=== PATIENT | male | born 1995 | race Caucasian/White ===

== ENCOUNTER 2016-05-21 16:21 | Emergency (ER) | payer MEDICAID ==
[2016-05-21 16:34] VITALS: BP 133/82
--- NOTE | 2016-05-21 17:13 | UC ---
UC General HPI - HPI Summary HPI Summary: here today wishing to get meds refilled. Stated he came here from [place] and ran out of meds 2 weeks ago. States he went to a doctors office in [place] and was turned away because he has medicaid. Pt gave nurses the name of his last pharmacy in [place] - History of Current Complaint Chief Complaint: UCMedRefill Stated Complaint: MED REFILL Time Seen by Provider: 05/21/16 17:01 Hx Obtained From: Patient Timing: Constant Current Severity: None Associated Signs & Symptoms: Positive: Abdominal Pain - has been off hydrocodone and prilosec for 2 weeks - Allergy/Home Medications Allergies/Adverse Reactions: Allergies Allergy/AdvReac Type Severity Reaction Status Date / Time Methylphenidate Allergy Agitation Verified 05/21/16 16:34 [From Ritalin] Home Medications: Home Medications FLUoxetine* [PROzac*] 30 mg PO DAILY 05/21/16 [History Confirmed 05/21/16] Gabapentin [Neurontin 800 mg tab] 800 mg PO QID 05/21/16 [History Confirmed 09/01] Hydrocodone-Acetaminophen [Hydrocodone Bitartrate/AC] 1 tab PO QID PRN 05/21/16 [History Confirmed 05/21/16] Mirtazapine TAB* [Remeron TAB*] 30 mg PO BEDTIME 05/21/16 [History Confirmed 09/01] Omeprazole CAP* [Prilosec CAP* 20 MG] 40 mg PO BID 05/21/16 [History Confirmed 05/21/16] QUEtiapine TAB* [SEROquel TAB*] 400 mg PO BEDTIME 05/21/16 [History Confirmed ] Sertraline* [Zoloft*] 200 mg PO DAILY 05/21/16 [History Confirmed 05/21/16] PMH/Surg Hx/FS Hx/Imm Hx Previously Healthy: No GI/ History Of: Reports: Gastroesophageal Reflux - h.pylori per patients report Psychological History Of: Reports: Depression - per patients report, Bipolar Disorder - per patients report, Schizophrenia - per patients report - Surgical History Surgical History: Yes Surgery Procedure, Year, and Place: Right ankle surgery. Hypospadias. T&A - Family History Family History: denies cardio vascular issues in family lineage - Social History Occupation: Unemployed Lives: With Family Alcohol Use: None Substance Use Type: None Smoking Status (MU): Heavy Every Day Tobacco Smoker Have You Smoked in the Last Year: Yes Cessation Counseling: Counseled 3+Min - 10 Min Review of Systems Constitutional: Negative Skin: Negative Eyes: Negative ENT: Negative Respiratory: Negative Cardiovascular: Negative Gastrointestinal: Negative Genitourinary: Negative Motor: Negative Neurovascular: Negative Musculoskeletal: Negative Neurological: Negative Psychological: Negative All Other Systems Reviewed And Are Negative: Yes Physical Exam Triage Information Reviewed: Yes Appearance: Well-Appearing, No Pain Distress, Well-Nourished, Other: - clear and well kept Vital Signs: Initial Vital Signs Temp 99.4 F 05/21/16 16:27 Pulse 84 05/21/16 16:27 Resp 14 05/21/16 16:27 BP 133/82 05/21/16 16:27 Pulse Ox 99 05/21/16 16:27 Vital Signs Reviewed: Yes Eye Exam: Normal Eyes: Positive: Conjunctiva Clear ENT Exam: Normal ENT: Positive: Normal ENT inspection, Hearing grossly normal. Negative: Nasal congestion, Nasal drainage, Trismus, Muffled/hoarse voice Dental Exam: Normal Neck exam: Normal Neck: Positive: Supple, Nontender Respiratory Exam: Normal Respiratory: Positive: Chest non-tender, No respiratory distress, No accessory muscle use Cardiovascular Exam: Normal Cardiovascular: Positive: RRR, Pulses Normal, Brisk Capillary Refill Musculoskeletal Exam: Normal Musculoskeletal: Positive: Strength Intact, ROM Intact, No Edema Neurological Exam: Normal Neurological: Positive: Alert, Muscle Tone Normal Psychological Exam: Normal Psychological: Positive: Other: - denies SI/HI Skin Exam: Normal Re-Evaluation - Re-Evaluation Second Eval Change: Unchanged - called pharmacy in [facility] had zoloft, neurontin and remeron filled in February Course/Dx - Course Course Of Treatment: 2 week suppy of prilosec, neurontin, remeron and zolfort provided as well as encouragement to go to [facility] for assistance with medication managment and seek primary care provider referral line provided - Differential Dx - Multi-Symptom Differential Diagnoses: Other - non adherent to medication, med refil bipolar by history Provider Diagnoses: Bipolar disorder by history,Gerd, med refill Discharge - Discharge Plan Condition: Stable Disposition: HOME Prescriptions: Gabapentin [Neurontin 800 mg tab] 800 mg PO QID #60 tab Mirtazapine TAB* [Remeron TAB*] 30 mg PO BEDTIME #15 tab Omeprazole [Prilosec CAP 40 MG] 40 mg PO DAILY #15 cap Sertraline* [Zoloft*] 200 mg PO DAILY #30 tab Patient Education Materials: Osteoarthritis (ED), Bipolar Disorder (ED), Gastroesophageal Reflux Disease (ED) [facility] [[facility] - [facility] [Outside] - As Soon As Possible
== END 2016-05-21 17:33 | disposition home or self-care (01) ==
LOC: UCCORT 16:21
DX: Z76.0 Encounter for issue of repeat prescription (principal); F31.9 Bipolar disorder, unspecified; K21.9 Gastro-esophageal reflux disease without esophagitis; Z88.8 Allergy status to other drugs, medicaments and biological substances; Z79.891 Long term (current) use of opiate analgesic; F20.9 Schizophrenia, unspecified; F17.200 Nicotine dependence, unspecified, uncomplicated
CPT/HCPCS: 99202; G0463